=== PATIENT | female | born 1995 | race Caucasian/White ===

== ENCOUNTER 2017-01-06 12:06 | Emergency (ER) | payer OTHER ==
[2017-01-06] MEDS ORDERED: Sodium Chloride 0.9% 10 ML Syringe FLUSH PRN (12:56)
[2017-01-06] MEDS ORDERED: Sodium Chloride 0.9% 1,000 ML IV ONE ×2 (12:56→14:11)
[2017-01-06] MEDS ORDERED: LORazepam 2 MG/ML MDV IVPUSH ONE (12:57)
[2017-01-06] MEDS ORDERED: Morphine 4 MG/ML Syringe IVPUSH ONE (12:57)
[2017-01-06] MEDS ORDERED: Ondansetron 4 MG/2 ML SDV IVPUSH ONE (12:57)
--- NOTE | 2017-01-06 13:31 | EDM.PDOC ---
ED HPI GENERAL MEDICAL PROBLEM - General Chief Complaint: Abdominal Pain Stated Complaint: HERNIA/VOMITING/CAN'T KEEP ANYTHING DOWN Time Seen by Provider: 01/06/17 13:00 Source of Information: Reports: Patient History Limitations: Reports: No Limitations - History of Present Illness INITIAL COMMENTS - FREE TEXT/NARRATIVE: Aria is a 21 year old female with hx of known hiatal hernia who presents to the ED today with c/o increasing epigastric pain, sharp in nature, with nausea and vomiting since 0900 this morning. Patient has been unable to keep any food/ fluids down. She is on protonix daily, [facility] Patient denies any fever. She is hyperventilating secondary to pain. She denies any chest pain or sob. Patient is currently menstruating. Onset: Today Duration: Hour(s): (5) Upper Abdominal Pain Score (Numeric/FACES): 8 - Related Data Allergies Allergy/AdvReac Type Severity Reaction Status Date / Time Sulfa (Sulfonamide Allergy Hives Verified 01/06/17 12:43 Antibiotics) Home Meds: Home Meds * Control Pill 1 tab PO DAILY 01/06/17 [History] FLUoxetine HCl [Prozac] 1 tab PO DAILY 01/06/17 [History] Pantoprazole Sodium [Protonix] 1 tab PO DAILY 01/06/17 [History] Past Medical History Gastrointestinal History: Reports: Hiatal Hernia Musculoskeletal History: Reports: Fracture Neurological History: Reports: Concussion Psychiatric History: Reports: Anxiety, Depression - Past Surgical History HEENT Surgical History: Reports: Oral Surgery, Other (See Below) Other HEENT Surgeries/Procedures: wisdom teeth removal Social & Family History - Tobacco Use Smoking Status *Q: Never Smoker - Alcohol Use Days Per Week of Alcohol Use: 2 Number of Drinks Per Day: 3 Total Drinks Per Week: 6 - Recreational Drug Use Recreational Drug Use: No ED ROS GENERAL - Review of Systems Review Of Systems: ROS reveals no pertinent complaints other than HPI. ED EXAM, GI/ABD - Physical Exam Exam: See Below Exam Limited By: No Limitations General Appearance: Alert, WD/WN, Moderate Distress Eyes: Bilateral: EOMI Ears: Normal External Exam Throat/Mouth: Normal Inspection, Normal Oropharynx, No Airway Compromise Head: Atraumatic Neck: Normal Inspection, Supple, Non-Tender, Full Range of Motion Respiratory/Chest: No Respiratory Distress, Lungs Clear, Normal Breath Sounds Cardiovascular: Normal Peripheral Pulses, Regular Rate, Rhythm, No Murmur GI/Abdominal: Normal Bowel Sounds, Soft, No Distention, Tenderness (Mid epigastric region) (Female) Exam: Deferred Rectal (Female) Exam: Deferred Extremities: Normal Inspection Neurological: Alert, Oriented, CN II-XII Intact Psychiatric: Anxious, Other (Hyperventilating, [place] in hands) Skin Exam: Cool, Pallor Lymphatic: No Adenopathy Course - Vital Signs Text/Narrative:: Aria is an otherwise healthy 21 year old female with known hx of small hiatal hernia who presents to the ED today with c/o severe epigastric pain since this morning with nausea/vomiting. Please refer to HPI and focused exam. Patient tender on exam to midepigsatric region, patient pale, hyperventilating , tetany in hands. Concerns for obstruction vs. spasm. PIV established and patient was given 1 liter of NS. Patient given Zofran for nausea, Morphine for pain and Ativan with complete resolution of her symptoms. CBC returns with mild leukocytosis of 12.8 with left shift, likely from vomiting. CMP returns with mildly elevated glucose of 130, elevated anion gap of 20.5. 2nd liter of NS was given for elevated anion gap, patient eating and drinking without any return of symptoms, feels much better and would like to go home. I feel based on resolution of symptoms that imaging is not warranted today as patient likely had a spasm. Patient should follow up with PCP in the next week, stay well hydrated and continue protonix and prescribed. Reasons to return to the ED discussed and patient and her agreeable, she was discharged in stable condition. Last Recorded V/S: Last Vital Signs Temp 36.3 C 01/06/17 14:29 Pulse 98 01/06/17 14:29 Resp 16 01/06/17 14:29 BP 117/77 01/06/17 14:29 Pulse Ox 100 01/06/17 14:29 - Orders/Labs/Meds Orders: Active Orders 24 hr Category Date Time Status Peripheral IV Care [RC] . DIRECTED Care 01/06/17 12:56 Active Sodium Chloride 0.9% [Saline Flush] Med 01/06/17 12:56 Active 10 ml FLUSH ASDIRECTED PRN Peripheral IV Insertion Adult [OM.PC] Routine Oth 01/06/17 12:56 Ordered Medication Orders Sodium Chloride (Saline Flush) 10 ml FLUSH ASDIRECTED PRN PRN Reason: Keep Vein Open Last Admin: 01/06/17 13:20 Dose: 10 ml Labs: Laboratory Tests 01/06/17 01/06/17 01/06/17 Range/Units 13:09 13:09 13:27 WBC 12.8 H (4.5-11.0) K/uL RBC 4.72 (3.30-5.50) M/uL Hgb 13.4 (12.0-15.0) g/dL Hct 38.2 (36.0-48.0) % MCV 81 (80-98) fL MCH 28 (27-31) pg MCHC 35 (32-36) % Plt Count 531 H (150-400) K/uL Neut % (Auto) 89 H (36-66) % Lymph % (Auto) 7 L (24-44) % [place] % (Auto) 3 (2-6) % Eos % (Auto) 0 L (2-4) % Baso % (Auto) 0 (0-1) % Sodium 140 (140-148) mmol/L Potassium 3.5 L (3.6-5.2) mmol/L Chloride 102 (100-108) mmol/L Carbon Dioxide 21 (21-32) mmol/L Anion Gap 20.5 H (5.0-14.0) mmol/L BUN 11 (7-18) mg/dL Creatinine 0.9 (0.6-1.0) mg/dL Est Cr Clr Drug Dosing 83.95 mL/min Estimated GFR (MDRD) > 60 (>60) Glucose 131 H (74-106) mg/dL Calcium 9.2 (8.5-10.1) mg/dL Total Bilirubin 0.3 (0.2-1.0) mg/dL AST 16 (15-37) U/L ALT 20 (12-78) U/L Alkaline Phosphatase 34 L (46-116) U/L Total Protein 7.8 (6.4-8.2) g/dL Albumin 3.9 (3.4-5.0) g/dL Globulin 3.9 H (2.3-3.5) g/dL Albumin/Globulin Ratio 1.0 L (1.2-2.2) Lipase 93 (73-393) U/L HCG, Qual Negative Meds: Medications Generic Name Dose Route Start Last Admin Trade Name Freq PRN Reason Stop Dose Admin Sodium Chloride 10 ml 01/06/17 12:56 01/06/17 13:20 Saline Flush FLUSH 10 ml ASDIRECTED PRN Administration Keep Vein Open Discontinued Medications Generic Name Dose Route Start Last Admin Trade Name Freq PRN Reason Stop Dose Admin Sodium Chloride 1,000 mls @ 999 mls/hr 01/06/17 12:56 01/06/17 13:19 Normal Saline IV 01/06/17 13:56 999 mls/hr .BOLUS ONE Administration Sodium Chloride 1,000 mls @ 999 mls/hr 01/06/17 14:11 01/06/17 14:23 Normal Saline IV 01/06/17 15:11 999 mls/hr .BOLUS ONE Administration Lorazepam 0.5 mg 01/06/17 12:57 01/06/17 13:20 Ativan IVPUSH 01/06/17 12:58 0.5 mg ONETIME ONE Administration Morphine Sulfate 4 mg 01/06/17 12:57 01/06/17 13:22 Morphine IVPUSH 01/06/17 12:58 4 mg ONETIME ONE Administration Ondansetron HCl 4 mg 01/06/17 12:57 01/06/17 13:18 Zofran IVPUSH 01/06/17 12:58 4 mg ONETIME ONE Administration Departure - Departure Time of Disposition: 16:00 Disposition: Home, Self-Care 01 Clinical Impression: Epigastric pain, Hiatal hernia with GERD - Discharge Information Instructions: Hiatal Hernia Referrals: PCP,None [Primary Care Provider] - Forms: ED Department Discharge Additional Instructions: Aria, Please continue to take Protonix as prescribed. Follow up with your primary care provider in the next week. If your symptoms worsen, please return to the ED. Make sure to stay well hydrated. - My Orders Last 24 Hours: My Active Orders 01/06/17 12:56 Peripheral IV Care [RC] . DIRECTED Sodium Chloride 0.9% [Saline Flush] 10 ml FLUSH ASDIRECTED PRN Peripheral IV Insertion Adult [OM.PC] Routine - Assessment/Plan Last 24 Hours: My Active Orders 01/06/17 12:56 Peripheral IV Care [RC] . DIRECTED Sodium Chloride 0.9% [Saline Flush] 10 ml FLUSH ASDIRECTED PRN Peripheral IV Insertion Adult [OM.PC] Routine
[2017-01-06 14:29] VITALS: BP 117/77
== END 2017-01-06 15:35 | disposition home or self-care (01) ==
LOC: JP.ED 12:06
DX: R10.13 Epigastric pain (principal); K44.9 Diaphragmatic hernia without obstruction or gangrene; K21.9 Gastro-esophageal reflux disease without esophagitis; F41.9 Anxiety disorder, unspecified; F32.9 Major depressive disorder, single episode, unspecified; Z88.2 Allergy status to sulfonamides; Z79.899 Other long term (current) drug therapy; Z98.890 Other specified postprocedural states
CPT/HCPCS: 36415; 80053; 83690; 84703; 85025; 96361; 96374; 96375; 99284; J2060; J2270; J2405; J7040; J7050